=== PATIENT | male | born 1980 | race Caucasian/White ===

== ENCOUNTER 2018-08-28 13:55 | Inpatient (IN) | payer OTHER ==
[~2018-08-28] VITALS: Ht 190.5 cm; Wt 114.4 kg
--- NOTE | 2018-08-28 14:16 | NUR ---
MS OPENING NOTES PATIENT ARRIVED VIA AMBULANCE AT 1415. PATIENT IS A/O X 4. PATIENT HAS NO SIGNS OF RESPIRATORY DISTRESS. PATIENT DENIES SHORTNESS OF BREATH AT THIS TIME. PATIENT HAS IV RIGHT ANTECUBITAL G20. PATIENT HAS PAIN 8/10 AT THIS TIME. SAFETY PRECAUTIONS IMPLEMENTED: BED IN LOW POSITION, BED LOCKED, SIDERAILS UP X2, CALL LIGHT WITHIN REACH. WILL CONTINUE TO MONITOR THROUGHOUT THE REST OF SHIFT.
[2018-08-28] MEDS ORDERED: NAPR-1009 PO (14:28)
[2018-08-28] MEDS ORDERED: QUET400T PO (14:28)
[2018-08-28] MEDS ORDERED: ALPR0.5T PO (14:28)
[2018-08-28] MEDS ORDERED: DOCU-141 PO (14:28)
[2018-08-28] MEDS ORDERED: SENN-168 PO (14:28)
[2018-08-28] MEDS ORDERED: CITA40TA11 PO (14:28)
--- NOTE | 2018-08-28 14:30 | NUR ---
MS/RN NOTE DURING ASSESSMENT THE PATIENT VERBALIZED THAT HE HAS HX SCHIZOPHRENIA. HE STATED HAVING AUDITORY HALLUCINATION THAT TELL HIM HARM HIM OR OTHERS BUT THE PATIENT DENIES HAVING FOLLOWING THE VOICES, DENIES ATTEMPTS OF SI/HI AND DENIES HAVING THOUGHT OF SI/HI. THE PATIENT STATES I DO NOT LISTEN TO THE VOICES. THE PATIENT DENIES HAVING VISUAL HALLUCINATION. WILL FOLLOW UP WITH EVELIA ALCANTARA.
--- NOTE | 2018-08-28 15:08 | NUR ---
MS HILARIA PATIENT REFUSED SKIN ASSESSMENT DUE TO PAIN 01/30 TO LEFT INGUINAL AREA RADIATING TO LEFT LEG. Addendum: 08/28/18 at 1509 by SHERRY BAE RN WILL DO SKIN ASSESSMENT AFTER PAIN IS TOLERABLE.
[2018-08-28 16:00] VITALS: BP 123/75
[2018-08-28] MEDS ORDERED: ACETAMINOPHEN 325 MG TABLET PO PRN (16:00)
[2018-08-28] MEDS ORDERED: ONDANSETRON HCL/PF 4 MG/2 ML VIAL IVP PRN (16:00)
[2018-08-28] MEDS ORDERED: MAGNESIUM HYDROXIDE 30 ML UDC PO PRN (16:00)
[2018-08-28] MEDS ORDERED: Z GUARD REMEDY 2 OZ OINT TP PRN (16:00)
[2018-08-28] MEDS ORDERED: MAG HYDROX/AL HYDROX/SIMETH 30 ML UDC PO PRN (16:00)
[2018-08-28 17:00] VITALS: BP 132/78
[2018-08-28 17:19] LABS: BASOPHILS # (AUTO) 0.1 /CMM (0.0-0.2); BASOPHILS % (AUTO) 0.5 % (0.0-2.0); EOSINOPHILS % (AUTO) 2.2 % (0.0-6.0); HEMATOCRIT 38 % (39-51); HEMOGLOBIN 13.1 g/dL (13.5-17.5); LYMPHOCYTES # (AUTO) 1.9 /CMM (0.8-4.8); LYMPHOCYTES % (AUTO) 18.8 % (20.0-44.0); MEAN CORPUSCULAR HGB CONC 34 g/dl (31.0-36.0); MEAN CORPUSCULAR VOLUME 89 fL (80-96); MONOCYTES # (AUTO) 0.8 /CMM (0.1-1.30); MONOCYTES % (AUTO) 8.1 % (2.0-12.0); NEUTROPHILS % (AUTO) 70.4 % (43.0-81.0); PLATELET COUNT (AUTO) 228 /CMM (150-450); RED BLOOD CELL COUNT(AUTO) 4.29 MIL/uL (4.5-6.0)
[2018-08-28] MEDS ORDERED: FEE PK DOSING 1 MIN EA MC ONE (17:19)
--- NOTE | 2018-08-28 17:29 | NUR ---
MS/RN NOTE COMPONENT TECHNICIAN MARICRUZ IS MADE AWARE OF PATIENT DX OF SCHIZOPHRENIA AND HAVING AUDITORY HALLUCINATION. RECEIVED ORDER FOR PSYCH CONSULT. THE ORDER IS READ BACK, VERIFIED. NOTED AND CARRIED OUT. ENDORSED ACCORDINGLY.
[2018-08-28] MEDS: IV NS 0.9% 1,000 ML IV PRN (17:34)
[2018-08-28 17:37] LABS: CALCIUM, SERUM 8.4 mg/dL (8.5-10.1); POTASSIUM 3.7 mmol/L (3.5-5.1)
[2018-08-28] MEDS: MORPHINE SULFATE INJ 2 MG/ML DISP.SYRIN IV PRN (17:40)
[2018-08-28] MEDS ORDERED: PIPERACILLIN /TAZOBACTAM 3.375 G in IV D5W 50 ML IV SCH (18:00)
--- NOTE | 2018-08-28 18:10 | NUR ---
MS/RN NOTE LEFT LEG PAIN 510. STATED THAT THE PATIENT MEDICATION WAS EFFECTIVE AND DOES NOT WANT ANOTHER PAIN MEDICATION AT THIS TIME. STILL REFUSED SKIN ASSESSMENT.
--- NOTE | 2018-08-28 18:18 | NUR ---
MS/RN NOTE THE PATIENT ALERT AND ORIENTED X4. IN ROOM AIR AND SATURATION IS AT 97%. DENIES SOB. RESPIRATION REGULAR AND UNLABORED. DENIES PAIN AT THIS TIME. THE PATIENT IN NO APPARENT DISTRESS. DENIES SI, DENIES HI. RAC G 20 PATENT AND NORMAL SALINE INFUSING AT 75ML/HR. NO S/S INFILTRATION NOTED. BED LOW AND LOCKED. SIDE RAILS UP X2. CALL LIGHT WITHIN REACH. WILL ENDORSE TO WAFER MACHINE OPERATOR.
[2018-08-28] MEDS: VANCOMYCIN 1.25 GM in IV D5W 500 ML IV SCH (18:38)
--- NOTE | 2018-08-28 19:30 | NUR ---
MS/RN NOTES RECEIVED PT. LYING IN BED. PT. IS AWAKE, ALERT AND ORIENTED X4. BREATHING EVEN AND UNLABORED ON ROOM AIR. NO SOB OR RESPIRATORY DISTRESS NOTED AT THIS TIME. PT. COMPLAINING OF PAIN 7/10 IN HIS LEFT INGUINAL AREA. PT. STATES THE PAIN MEDICATION IS EFFECTIVE AND HIS PAIN LEVEL HAS IMPROVED SINCE RECEIVING THE MEDICATION. WILL CONTINUE TO MONITOR PT. PAIN AND ADMINISTER PAIN MEDICATION ORDERED. PT. WITH RIGHT FOREARM 20 GAUGE PERIPHERAL IV PRESENT, PATENT AND INTACT ADMINISTERING TO PT. NS @ 75 ML/HR. PT. CONTINUE TO REFUSE SKIN ASSESSMENT DUE TO PAIN. WILL ATTEMPT AGAIN AT A LATER TIME. PER DAYSHIFT NURSE PSYCH CONSULT IS PENDING. PT. DENIES ANY SUICIDAL IDEATIONS OR HOMICIDAL IDEATIONS AT THIS TIME. BED LOCKED AND IN LOWEST POSITION, SIDE RAILS UP X2, CALL LIGHT WITHIN REACH, WILL CONTINUE TO MONITOR.
[2018-08-28 20:00] VITALS: BP 130/77
[2018-08-28] MEDS: PIPERACILLIN /TAZOBACTAM 3.375 G in IV D5W 100 ML IV SCH (20:37)
--- NOTE | 2018-08-28 21:36 | NUR ---
TEXTED DR. VALLE FOR MRI APPROVAL.
[2018-08-29] MEDS: MORPHINE SULFATE INJ 2 MG/ML DISP.SYRIN IV PRN (01:10)
[2018-08-29] MEDS: VANCOMYCIN 1.25 GM in IV D5W 500 ML IV SCH ×3 (02:54→18:07)
[2018-08-29] MEDS: PIPERACILLIN /TAZOBACTAM 3.375 G in IV D5W 100 ML IV SCH ×3 (05:15→19:55)
[2018-08-29 06:35] LABS: BASOPHILS # (AUTO) 0.1 /CMM (0.0-0.2); BASOPHILS % (AUTO) 0.9 % (0.0-2.0); HEMATOCRIT 41 % (39-51); HEMOGLOBIN 13.8 g/dL (13.5-17.5); LYMPHOCYTES # (AUTO) 1.3 /CMM (0.8-4.8); LYMPHOCYTES % (AUTO) 16.3 % (20.0-44.0); MEAN CORPUSCULAR HGB CONC 34 g/dl (31.0-36.0); MEAN CORPUSCULAR VOLUME 89 fL (80-96); MONOCYTES # (AUTO) 0.6 /CMM (0.1-1.30); MONOCYTES % (AUTO) 7.6 % (2.0-12.0); NEUTROPHILS # (AUTO) 5.9 /CMM (1.8-8.9); NEUTROPHILS % (AUTO) 73.2 % (43.0-81.0); PLATELET COUNT (AUTO) 230 /CMM (150-450); RED BLOOD CELL COUNT(AUTO) 4.54 MIL/uL (4.5-6.0); WHITE BLOOD COUNT (AUTO) 8.1 K/uL (4.3-11.0)
--- NOTE | 2018-08-29 06:40 | NUR ---
MS/RN NOTES PT. IS LYING IN BED. AWAKE, ALERT AND ORIENTED X3. BREATHING EVEN AND UNLABORED ON ROOM AIR. NO SOB, RESPIRATORY DISTRESS OR COMPLAINTS OF PAIN NOTED AT THIS TIME. PT. WITH RIGHT FOREARM 20 GAUGE PERIPHERAL IV PRESENT, PATENT AND INTACT ADMINISTERING TO PT. NS @ 75 ML/HR. ALL PT. NEEDS MET. BED LOCKED AND IN LOWEST POSITION, SIDE RAILS UP X2, CALL LIGHT WITHIN REACH, WILL ENDORSE TO DAYSHIFT NURSE FOR CONTINUITY OF CARE.
[2018-08-29 06:44] LABS: MAGNESIUM 2.1 mg/dL (1.8-2.4); PHOSPHORUS 3.9 mg/dL (2.5-4.9); POTASSIUM 3.5 mmol/L (3.5-5.1)
[2018-08-29 06:55] LABS: THYROID STIMULATING HORMONE 4.419 uIU/mL (0.358-3.74)
--- NOTE | 2018-08-29 07:10 | NUR ---
RN NOTES PATIENT A/OX4, BREATHING EVEN AND UNLABORED, NO SOB NOTED, PATIENT STATED LONG HE'S LYING STILL, THERE'S NO PAIN, BUT WHEN HE MOVES, HE'S IN PAIN. IVF INFUSING AND TOLERATING WELL, KEPT COMFORTABLE, WILL FOLLOW UP WITH RE: MED RECON. NEEDS ATTENDED AND MET, CALL LIGHT WITHIN REACH, WILL CONTINUE TO MONITOR.
[2018-08-29 08:00] VITALS: BP 123/79
--- NOTE | 2018-08-29 08:30 | NUR ---
RN NOTES RECHECKED TEMP AND SHOWS 99.0. ENCOURAGED PATIENT TO COVER WITH THIN BLANKET FOR NOW.
--- NOTE | 2018-08-29 10:00 | NUR ---
RN NOTES PATIENT SEEN BY WOJCIECH ALCANTARA NP, INFORMED OF MED RECON, PER MILITARY COOK, WILL HOLD OFF ON MED-RECON FOR NOW. STILL WAITING FOR PSYCH CONSULT AND RECOMMENDATION. Addendum: 08/29/18 at 1823 by PETE BROWN RN ADDENDUM: RECEIVED A CALL FROM [facility], RE[facility] GRAM POSITIVE COCCI AND CLUSTERS. WOJCIECH ALCANTARA NP MADE AWARE.
[2018-08-29] MEDS ORDERED: HYDROMORPHONE INJ 0.5 MG/0.5 ML SYRINGE IV PRN (10:30)
--- NOTE | 2018-08-29 11:45 | NUR ---
RN NOTES PATIENT WENT DOWNSTAIRS FOR AN MRI.
[2018-08-29] MEDS: HYDROMORPHONE 1 MG/1 ML DISP.SYRIN IV PRN ×3 (13:33→19:37)
[2018-08-29] MEDS ORDERED: GADODIAMIDE 5 MMOL/10 ML VIAL IJ ONE (14:53)
[2018-08-29 16:00] VITALS: BP 117/80
--- NOTE | 2018-08-29 16:00 | NUR ---
RN NOTES INFORMED WOJCIECH ALCANTARA NP RE: THE MRI RESULT. NO NEW ORDER AT THIS TIME.
[2018-08-29] MEDS: LACTOBACILLUS RHAMNOSUS GG 1 EACH CAP.SPRINK PO SCH (17:17)
--- NOTE | 2018-08-29 18:17 | NUR ---
RN NOTES PATIENT A/OX4, STILL SITTING AT EDGE OF THE BED, NO DISTRESS NOTED, DENIES PAIN AT THIS TIME, IVF INFUSING AND VANCOMYCIN INFUSING AND TOLERATING WELL. PATIENT SEEN BY GISELLE CHRISTINE. NEEDS ATTENDED AND MET, CALL LIGHT WITHIN REACH, WILL ENDORSE TO AUTOMATIC SPOOLER OPERATOR FOR KAREEM.
--- NOTE | 2018-08-29 19:35 | NUR ---
MS RN NOTE RECEIVED PT IN STABLE CONDITION A&O X3-4, ABLE TO MAKE NEEDS KNOWN. NOT SIGNS OF SOB OR DISTRESS, BREATHING EVEN AND UNLABORED. IV ATB INFUSING TOLERATING WELL. ALL CURRENT NEEDS MET. SAFETY PRECAUTIONS IN PLACE: BED LOW, LOCKED, UPPER RAILS UP, AND CALL LIGHT WITHIN REACH. WILL CONT. TO MONITOR.
[2018-08-29 20:00] VITALS: BP 109/66
[2018-08-29] MEDS: ARIPIPRAZOLE 5 MG TABLET PO SCH (21:04)
[2018-08-30] MEDS: VANCOMYCIN 1.25 GM in IV D5W 500 ML IV SCH ×3 (01:25→17:05)
[2018-08-30] MEDS: PIPERACILLIN /TAZOBACTAM 3.375 G in IV D5W 100 ML IV SCH ×3 (03:52→19:53)
--- NOTE | 2018-08-30 06:17 | NUR ---
MS RN NOTE PT IN STABLE CONDITION A&O X3-4, ABLE TO MAKE NEEDS KNOWN. NO SIGNS OF SOB OR DISTRESS, BREATHING EVEN AND UNLABORED. IV ATB INFUSING TOLERATING WELL. ALL CURRENT NEEDS MET. SAFETY PRECAUTIONS IN PLACE: BED LOW, LOCKED, UPPER RAILS UP, AND CALL LIGHT WITHIN REACH. WILL CONT. TO MONITOR AND ENDORSE TO NEXT SHIFT FOR KAREEM.
--- NOTE | 2018-08-30 07:00 | NUR ---
RN OPENING NOTES PT AWAKE AND RESTING IN BED. NO COMPLAINTS OF PAIN SOB OR DISTRESS AT THIS TIME. PT HAS A LEFT FA #20 AND RIGHT FA #20 BOTH INTACT AND PATENT. SAFETY PRECAUTIONS IN PLACE, BED IN LOWEST LOCKED POSITION, X2 SIDE RAILS UP AND CALL LIGHT WITHIN REACH. WILL CONTINUE TO MONITOR.
[2018-08-30 07:14] LABS: BASOPHILS % (AUTO) 0.5 % (0.0-2.0); EOSINOPHILS % (AUTO) 3.9 % (0.0-6.0); HEMATOCRIT 37 % (39-51); HEMOGLOBIN 12.8 g/dL (13.5-17.5); LYMPHOCYTES # (AUTO) 1.7 /CMM (0.8-4.8); LYMPHOCYTES % (AUTO) 21.9 % (20.0-44.0); MEAN CORPUSCULAR HGB CONC 34 g/dl (31.0-36.0); MEAN CORPUSCULAR VOLUME 89 fL (80-96); MONOCYTES # (AUTO) 0.7 /CMM (0.1-1.30); MONOCYTES % (AUTO) 8.4 % (2.0-12.0); NEUTROPHILS # (AUTO) 5.2 /CMM (1.8-8.9); NEUTROPHILS % (AUTO) 65.3 % (43.0-81.0); PLATELET COUNT (AUTO) 237 /CMM (150-450); RED BLOOD CELL COUNT(AUTO) 4.21 MIL/uL (4.5-6.0); WHITE BLOOD COUNT (AUTO) 7.9 K/uL (4.3-11.0)
[2018-08-30 07:29] LABS: CALCIUM, SERUM 8.5 mg/dL (8.5-10.1); CREATININE 0.8 mg/dL (0.6-1.3); POTASSIUM 3.5 mmol/L (3.5-5.1)
[2018-08-30] MEDS: HYDROMORPHONE 1 MG/1 ML DISP.SYRIN IV PRN ×5 (07:29→23:00)
[2018-08-30 08:00] VITALS: BP 123/69
[2018-08-30] MEDS: LACTOBACILLUS RHAMNOSUS GG 1 EACH CAP.SPRINK PO SCH ×2 (08:49→16:32)
--- NOTE | 2018-08-30 14:49 | NUR ---
RN NOTES PT REQUESTED TO SHOWER. PER WOJCIECH ALCANTARA OKTAB FOR PATIENT TO SHOWER. WILL CARRY OUT ORDERED.
[2018-08-30 16:00] VITALS: BP 134/79
--- NOTE | 2018-08-30 18:56 | NUR ---
RN CLOSING NOTES PT AWAKE AND RESTING IN BED. NO COMPLAINTS OF PAIN SOB OR DISTRESS, PT PAIN MANAGED THROUGH DILAUDID Q2H PRN. PT HAS A LEFT FA #20 AND RIGHT FA #20 BOTH INTACT AND PATENT. SAFETY PRECAUTIONS IN PLACE, BED IN LOWEST LOCKED POSITION, X2 SIDE RAILS UP AND CALL LIGHT WITHIN REACH. WILL ENDORSE TO OB GYN FOR CONTINUITY OF CARE.
--- NOTE | 2018-08-30 19:05 | NUR ---
MS RN NOTE RECEIVED PT IN STABLE CONDITION, A&O X4, ABLE TO MAKE NEEDS KNOWN. PT AWAKE/ALERT WITH FRIENDS CURRENTLY AT BEDSIDE. NO SIGNS OF SOB OR DISTRESS, BREATHING EVEN AND UNLABORED. ALL CURRENT NEEDS MET. SAFETY PRECAUTIONS IN PLACE: BED LOW, LOCKED, UPPER RAILS UP, AND CALL LIGHT WITHIN REACH. WILL CONT. TO MONITOR.
--- NOTE | 2018-08-30 19:36 | NUR ---
MS RN NOTE PRN DILAUDID 0.5 MG GIVEN FOR PAIN 9/10 LOCATED IN L INGUINAL AREA. WILL CONT TO MONITOR.
[2018-08-30 20:00] VITALS: BP 139/90
[2018-08-30] MEDS: ARIPIPRAZOLE 5 MG TABLET PO SCH (21:00)
--- NOTE | 2018-08-30 23:00 | NUR ---
MS RN NOTE PRN DILAUDID 0.5 MG IV GIVEN FOR PAIN IN THE L INGUINAL AREA. PT. ALSO REFUSED WEEKLY BODY CHECK. WILL CONT TO MONITOR.
[2018-08-31] MEDS: VANCOMYCIN 1.25 GM in IV D5W 500 ML IV SCH ×3 (01:00→18:22)
[2018-08-31] MEDS: PIPERACILLIN /TAZOBACTAM 3.375 G in IV D5W 100 ML IV SCH ×3 (03:46→20:37)
[2018-08-31] MEDS: HYDROMORPHONE 1 MG/1 ML DISP.SYRIN IV PRN ×3 (03:57→17:13)
--- NOTE | 2018-08-31 06:26 | NUR ---
MS RN NOTE PT IN STABLE CONDITION, A&O X4, ABLE TO MAKE NEEDS KNOWN. NO SIGNS OF SOB OR DISTRESS, BREATHING EVEN AND UNLABORED. PAIN MANAGED AT ORDERED BY MD. ALL CURRENT NEEDS MET. SAFETY PRECAUTIONS IN PLACE: BED LOW, LOCKED, UPPER RAILS UP, AND CALL LIGHT WITHIN REACH. WILL CONT. TO MONITOR AND ENDORSE TO NEXT SHIFT FOR KAREEM.
[2018-08-31 06:28] LABS: BASOPHILS # (AUTO) 0.1 /CMM (0.0-0.2); HEMATOCRIT 37 % (39-51); HEMOGLOBIN 12.6 g/dL (13.5-17.5); LYMPHOCYTES # (AUTO) 2.1 /CMM (0.8-4.8); LYMPHOCYTES % (AUTO) 26.3 % (20.0-44.0); MEAN CORPUSCULAR HGB CONC 34 g/dl (31.0-36.0); MEAN CORPUSCULAR VOLUME 89 fL (80-96); MONOCYTES # (AUTO) 0.6 /CMM (0.1-1.30); MONOCYTES % (AUTO) 7.3 % (2.0-12.0); NEUTROPHILS # (AUTO) 4.8 /CMM (1.8-8.9); NEUTROPHILS % (AUTO) 60.4 % (43.0-81.0); PLATELET COUNT (AUTO) 240 /CMM (150-450); RED BLOOD CELL COUNT(AUTO) 4.16 MIL/uL (4.5-6.0); WHITE BLOOD COUNT (AUTO) 7.9 K/uL (4.3-11.0)
[2018-08-31 06:36] LABS: CALCIUM, SERUM 8.5 mg/dL (8.5-10.1); CREATININE 0.8 mg/dL (0.6-1.3); POTASSIUM 3.7 mmol/L (3.5-5.1)
--- NOTE | 2018-08-31 07:30 | NUR ---
MS RN OPENING NOTE RECEIVED PT IN BED, RESTING WITH EYES CLOSED. BREATHING IS EVEN AND UNLABORED ON ROOM AIR. NO ACUTE DISTRESS NOTED AT THIS TIME. RIGHT FA #20G IV IS INFUSING ORDERED WITHOUT REDNESS OR SWELLING. ALL NEEDS ATTENDED TO. BED IS LOCKED AND IN LOWEST POSITION, SIDE RAILS UP X2, BED ALARM ON, CALL LIGHT AND POSSESSIONS WITHIN REACH.
[2018-08-31 08:00] VITALS: BP 126/81
[2018-08-31] MEDS: LACTOBACILLUS RHAMNOSUS GG 1 EACH CAP.SPRINK PO SCH ×2 (08:55→17:12)
--- NOTE | 2018-08-31 10:00 | NUR ---
MS RN NOTE PER RICHARD IN PHARMACY, PT DOES NOT NEED VANCOMYCIN TROUGH PRIOR TO 1000 VANCOMYCIN ADMINISTRATION BUT WILL REQUIRE ONE PRIOR TO THE 1800 DOSE.
[2018-08-31] MEDS: HYDROCODONE/APAP 5/325MG 1 EACH TABLET PO PRN ×3 (11:24→21:58)
--- NOTE | 2018-08-31 12:25 | NUR ---
MS RN NOTE SIGNED RELEASE OF RECORDS SENT TO [facility] MEDICAL RECORDS DEPARTMENT WITH [facility] FAX AND PHONE NUMBER. AWAITING RECEIPT OF MEDICAL RECORDS, INCLUDING BLOOD CX.
--- NOTE | 2018-08-31 13:30 | NUR ---
MS RN NOTE PER CHARGE NURSE ELIAN, HOSPITAL RECORDS FROM [facility] RECEIVED AND PLACED IN CHART. INFORMED HOSPITALIST WOJCIECH LACANTARA NP.
--- NOTE | 2018-08-31 14:21 | NUR ---
Social service consult received from Devaughn Trinidad for Drug (meth) use and Auditory Hallucination. Pt is a 38-year-old male transferred to [facility] from [facility] due to complaints of left groin pain. Pt has a history of drug use and diagnosis of Schizophrenia and depression. Social work met with pt at bedside, pt appeared clean and well groomed. Pt is alert and oriented x4 and in a pleasant mood. 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 Pt reports to social work his history with schizophrenia pt report he used to receive care at [facility] however has not been to the facility for over a year. Pt reports to have visited [facility] however has not received any care yet. Sw offered pt substance abuse referrals and mental health resources, pt accepted. Pt reports he is currently residing with his friends mother in her home. Pts friend was at bedside for support. Pt reports he has two children (ages five and eight). Pt reports his emergency contact is his sister Sarina Pereyra ([phone]). Pt denies any current Auditory or Visual Hallucination at this time. Pt denies any SI/HI. Sw left substance abuse and mental health resources with pt. No further social media director needs identified at this time. Sw remains available if needed.
[2018-08-31 16:00] VITALS: BP 129/81
[2018-08-31] MEDS: IV NS 0.9% 1,000 ML IV PRN (18:22)
--- NOTE | 2018-08-31 18:37 | NUR ---
MS RN CLOSING NOTE PT IN BED SITTING UP TALKING WITH FRIEND AT THE BEDSIDE. PT IS A/O X4, DENIES CHEST PAIN, SOB, N/V. BREATHING IS EVEN AND UNLABORED ON ROOM AIR. PT MEDICATED WITH NORCO 5-325MG @ 1830 FOR PAIN OF THE LEFT HIP ORDERED. NO ACUTE DISTRESS NOTED AT THIS TIME. RIGHT FA #20G IV IS INFUSING ORDERED WITHOUT REDNESS OR SWELLING. ASSISTED PT WITH SHOWER AND ADLS TODAY. PT WENT OUT FOR SMOKE BREAK X 1 DURING THE SHIFT. PT FOR US GUIDED CYST ASPIRATION AND CT GUIDED PARACENTESIS TOMORROW MORNING WITH ORDERS FOR NPO AT MIDNIGHT. CONSENTS SIGNED AND PLACED IN CHART. ALL NEEDS ATTENDED TO. BED IS LOCKED AND IN LOWEST POSITION, SIDE RAILS UP X2, BED ALARM ON, CALL LIGHT AND POSSESSIONS WITHIN REACH. WILL ENDORSE TO PHARMACEUTICAL COMPOUNDING SUPERVISOR NURSE FOR CONTINUITY OF CARE.
--- NOTE | 2018-08-31 19:53 | NUR ---
RN NOTES RECEIVED PATIENT IN STABLE CONDITION, ALERT & ORIENTED X4, ABLE TO MAKE NEEDS KNOWN. NO SIGNS OF SOB OR DISTRESS, BREATHING EVEN AND UNLABORED. SAFETY MEASURES IN PLACED, BED IN LOW LOCK POSITION, PERIPHERAL IV LINE INTACT AND PATENT, WILL MONITOR ACCORDINGLY.
[2018-08-31 20:00] VITALS: BP 122/88
[2018-08-31] MEDS: ARIPIPRAZOLE 5 MG TABLET PO SCH (21:57)
[2018-09-01] MEDS: HYDROMORPHONE 1 MG/1 ML DISP.SYRIN IV PRN ×4 (00:06→21:50)
[2018-09-01] MEDS: VANCOMYCIN 1.25 GM in IV D5W 500 ML IV SCH (02:52)
[2018-09-01] MEDS: PIPERACILLIN /TAZOBACTAM 3.375 G in IV D5W 100 ML IV SCH ×2 (04:10→12:26)
--- NOTE | 2018-09-01 07:03 | NUR ---
RN NOTES ALL NEEDS ATTENDED AND MET. NPO SINCE MIDNIGHT, FOR US GUIDE CYST ASPIRATION AND CT GUIDED PARACENTESIS. WILL ENDORSE TO AM NURSE FOR CONTINUITY OF CARE.
[2018-09-01 07:22] LABS: BASOPHILS # (AUTO) 0.1 /CMM (0.0-0.2); BASOPHILS % (AUTO) 0.9 % (0.0-2.0); EOSINOPHILS % (AUTO) 4.9 % (0.0-6.0); HEMATOCRIT 40 % (39-51); HEMOGLOBIN 13.4 g/dL (13.5-17.5); LYMPHOCYTES # (AUTO) 2.2 /CMM (0.8-4.8); LYMPHOCYTES % (AUTO) 29.2 % (20.0-44.0); MEAN CORPUSCULAR HGB CONC 34 g/dl (31.0-36.0); MEAN CORPUSCULAR VOLUME 90 fL (80-96); MONOCYTES # (AUTO) 0.5 /CMM (0.1-1.30); MONOCYTES % (AUTO) 6.6 % (2.0-12.0); NEUTROPHILS # (AUTO) 4.4 /CMM (1.8-8.9); NEUTROPHILS % (AUTO) 58.4 % (43.0-81.0); PLATELET COUNT (AUTO) 264 /CMM (150-450); RED BLOOD CELL COUNT(AUTO) 4.48 MIL/uL (4.5-6.0); WHITE BLOOD COUNT (AUTO) 7.6 K/uL (4.3-11.0)
--- NOTE | 2018-09-01 07:30 | NUR ---
RN MS NOTES Patient received with no sob or ventilatory distress noted. patient remains on room air. vital signs stable, patient not in pain, call light within reach, and safety measures in place.
[2018-09-01 08:02] LABS: CALCIUM, SERUM 8.8 mg/dL (8.5-10.1); CREATININE 0.8 mg/dL (0.6-1.3); POTASSIUM 3.9 mmol/L (3.5-5.1)
[2018-09-01] MEDS: LACTOBACILLUS RHAMNOSUS GG 1 EACH CAP.SPRINK PO SCH ×2 (09:00→17:00)
[2018-09-01 09:16] VITALS: BP 139/88
--- NOTE | 2018-09-01 10:58 | NUR ---
JUANCHO LUNSFORD) PAGED FOR CONSULT, AWAITING CALL BACK.
[2018-09-01] MEDS: HYDROCODONE/APAP 5/325MG 1 EACH TABLET PO PRN ×2 (11:14→16:06)
[2018-09-01] MEDS ORDERED: FENTANYL PF 250MCG/5ML AMPUL IV ONE (12:00)
[2018-09-01] MEDS ORDERED: NALOXONE PREFILLED SYRINGE 2 MG/2 ML SYRINGE IV ONE (12:00)
[2018-09-01] MEDS ORDERED: MIDAZOLAM HCL 5MG/ML VIAL 25 MG/5 ML VIAL IV ONE (12:00)
--- NOTE | 2018-09-01 15:45 | NUR ---
RN MS NOTES CALLED OFFICE OF [facility], MESSAGE LEFT WITH OFFICE C/O QUE FOR PT'S ORTHO CONSULT.
[2018-09-01] MEDS: VANCOMYCIN 1.5 GM in IV D5W 500 ML IV SCH ×2 (15:48→19:02)
[2018-09-01 16:00] VITALS: BP 128/76
--- NOTE | 2018-09-01 17:08 | NUR ---
RN MS NOTES PT SEEN BY MS SERVANDO PACKER FOR [facility]THO, PLAN OF CARE DISCUSSED WITH PT.
[2018-09-01] MEDS: CEFTRIAXONE 1 G in IV D5W 50 ML IV SCH (18:15)
--- NOTE | 2018-09-01 18:22 | NUR ---
RN Closing Notes Patient remains on room air with no sob or ventilatory distress noted. Patient is now on regular diet. Right hand with gauge 20, 75 mL per hour NS infusing. Patient does not complain of pain. Vital signs stable, maximiliano light within reach, and safety measures in place.
[2018-09-01 20:20] VITALS: BP 131/76
[2018-09-01] MEDS: ARIPIPRAZOLE 5 MG TABLET PO SCH (21:49)
[2018-09-02 01:50] VITALS: BP 131/76
--- NOTE | 2018-09-02 02:08 | NUR ---
MS RN OPENING NOTES Received patient asleep at this time, on RA, no SOB/respiratory distress at this time. Kept bed low and locked, siderails up. Will continue to monitor patient accordingly.
[2018-09-02] MEDS: IV NS 0.9% 1,000 ML IV PRN ×2 (02:57→17:35)
[2018-09-02] MEDS: VANCOMYCIN 1.5 GM in IV D5W 500 ML IV SCH ×3 (03:04→20:04)
[2018-09-02] MEDS: HYDROCODONE/APAP 5/325MG 1 EACH TABLET PO PRN ×2 (03:42→12:30)
[2018-09-02 06:39] LABS: BASOPHILS # (AUTO) 0.1 /CMM (0.0-0.2); BASOPHILS % (AUTO) 0.9 % (0.0-2.0); EOSINOPHILS % (AUTO) 6.5 % (0.0-6.0); HEMATOCRIT 40 % (39-51); HEMOGLOBIN 14.1 g/dL (13.5-17.5); LYMPHOCYTES # (AUTO) 1.5 /CMM (0.8-4.8); LYMPHOCYTES % (AUTO) 22.2 % (20.0-44.0); MEAN CORPUSCULAR HGB CONC 35 g/dl (31.0-36.0); MEAN CORPUSCULAR VOLUME 89 fL (80-96); MONOCYTES # (AUTO) 0.5 /CMM (0.1-1.30); MONOCYTES % (AUTO) 7.1 % (2.0-12.0); NEUTROPHILS # (AUTO) 4.3 /CMM (1.8-8.9); NEUTROPHILS % (AUTO) 63.3 % (43.0-81.0); PLATELET COUNT (AUTO) 302 /CMM (150-450); RED BLOOD CELL COUNT(AUTO) 4.57 MIL/uL (4.5-6.0); WHITE BLOOD COUNT (AUTO) 6.8 K/uL (4.3-11.0)
--- NOTE | 2018-09-02 06:40 | NUR ---
MS RN CLOSING NOTES Patient asleep on Patiño's position on bed, no discomfort noted at this time. All nursing needs attended and comfortable as much as possible. Kept bed low and locked with call light at bedside. No new complaints made. Endorsed to the next shift.
[2018-09-02 06:46] LABS: CALCIUM, SERUM 8.9 mg/dL (8.5-10.1); CREATININE 0.8 mg/dL (0.6-1.3); POTASSIUM 4.1 mmol/L (3.5-5.1)
--- NOTE | 2018-09-02 07:40 | NUR ---
MS/RN - Assessment Patient awake, A/O x 4, no complaints overnight, denies pain at this time, no apparent distress noted, afebrile, stable on room air. IVF NS at 75 ml/hr infusing well on the right hand with no signs of infiltration. Labs reviewed, no critical results. Continue Vancomycin and Rocephin for MSSA bacteremia and suspected osteomyelitis. Patient refused skin assessment. Patient is independent with bed mobility. Discussed plan of care. Will continue with current medical management.
[2018-09-02 08:00] VITALS: BP 120/76
[2018-09-02] MEDS: LACTOBACILLUS RHAMNOSUS GG 1 EACH CAP.SPRINK PO SCH ×2 (08:48→16:15)
[2018-09-02] MEDS: HYDROMORPHONE 1 MG/1 ML DISP.SYRIN IV PRN ×3 (09:04→20:56)
--- NOTE | 2018-09-02 15:50 | NUR ---
MS/RN - PICC line consent Patient signed the consent for PICC line insertion for IV antibiotic management.
[2018-09-02 16:00] VITALS: BP 125/90
--- NOTE | 2018-09-02 17:00 | NUR ---
MS/RN - PICC insertion PICC line was inserted on the right upper arm by PICC RN. Patient tolerated procedure well. Ok to use right upper arm PICC per RN.
[2018-09-02] MEDS: CEFTRIAXONE 1 G in IV D5W 50 ML IV SCH (17:25)
--- NOTE | 2018-09-02 18:20 | NUR ---
MS/RN - End of shift summary No new events seen. Patient resting comfortably, remain afebrile, IVF NS at 75ml/hr infusing well on the right hand with no signs of infiltration. PICC line on the right upper arm in place for IV antibiotic management x 6 weeks. Anticipate discharge to [facility] tomorrow. Will endorse to the night nurse accordingly.
--- NOTE | 2018-09-02 19:35 | NUR ---
MS RN RECEIVE PT IN BED. A/O X 3. RESPIRATIONS EVEN AND UNLABORED, NO SOB NOTED, NO DISTRESS, SAFETY MEASURES IN PLACE. WILL CONTINUE TO MONITOR.
[2018-09-02 20:00] VITALS: BP_SYST 126; BP_SYST 128; BP_DIAS 83
[2018-09-02] MEDS: ARIPIPRAZOLE 5 MG TABLET PO SCH (21:00)
[2018-09-03] MEDS: HYDROMORPHONE 1 MG/1 ML DISP.SYRIN IV PRN ×2 (00:07→08:50)
[2018-09-03] MEDS: VANCOMYCIN 1.5 GM in IV D5W 500 ML IV SCH ×2 (02:38→12:44)
[2018-09-03] MEDS: HYDROCODONE/APAP 5/325MG 1 EACH TABLET PO PRN ×2 (04:00→15:50)
--- NOTE | 2018-09-03 06:34 | NUR ---
RN CLOSING NOTE ASLEEP AND EASILY AWAKEN. RESPIRATIONS EVEN AND UNLABORED. NOT IN DISTRESS, STABLE. NEEDS ATTENDED AND ANTICIPATED, KEPT CLEAN AND DRY AND COMFORT. NURSING CARE RENDERED, SAFETY MEASURES IN PLACE, BED IN LOW LOCKED POSITION, CALL LIGHT WITHIN EASY REACH. ENDORSE TO NEXT SHIFT CONTINUITY OF CARE.
--- NOTE | 2018-09-03 07:50 | NUR ---
ms rn received on bed, awake,alert,oriented x4,not in any form of distress, respirations even and unlabored,no sob noted,lungs are clear,abdomen soft,positive bowel sounds, denies pain at this time,all needs attended.
[2018-09-03 08:00] VITALS: BP 119/74
[2018-09-03 08:01] LABS: BASOPHILS # (AUTO) 0.1 /CMM (0.0-0.2); BASOPHILS % (AUTO) 1.3 % (0.0-2.0); EOSINOPHILS % (AUTO) 4.9 % (0.0-6.0); HEMATOCRIT 42 % (39-51); HEMOGLOBIN 14.2 g/dL (13.5-17.5); LYMPHOCYTES % (AUTO) 25.7 % (20.0-44.0); MEAN CORPUSCULAR HGB CONC 34 g/dl (31.0-36.0); MEAN CORPUSCULAR VOLUME 90 fL (80-96); MONOCYTES # (AUTO) 0.6 /CMM (0.1-1.30); MONOCYTES % (AUTO) 7.4 % (2.0-12.0); NEUTROPHILS # (AUTO) 4.8 /CMM (1.8-8.9); NEUTROPHILS % (AUTO) 60.7 % (43.0-81.0); PLATELET COUNT (AUTO) 292 /CMM (150-450); RED BLOOD CELL COUNT(AUTO) 4.64 MIL/uL (4.5-6.0)
[2018-09-03 08:23] LABS: CALCIUM, SERUM 9.3 mg/dL (8.5-10.1); CREATININE 0.8 mg/dL (0.6-1.3); POTASSIUM 4.2 mmol/L (3.5-5.1)
[2018-09-03] MEDS: LACTOBACILLUS RHAMNOSUS GG 1 EACH CAP.SPRINK PO SCH (08:49)
--- NOTE | 2018-09-03 09:50 | NUR ---
ms yarbrough breakfast served, due meds given, tolerated well.
[2018-09-03] MEDS ORDERED: VANC1PLA9 IV (09:58)
[2018-09-03] MEDS ORDERED: ARIP5TAB10 PO (09:58)
[2018-09-03] MEDS ORDERED: CEFT1VIA15 IV (09:58)
--- NOTE | 2018-09-03 11:30 | NUR ---
ms rn was seen by md for discharge today.
--- NOTE | 2018-09-03 16:30 | NUR ---
ms rn patient transferred to snf w/ continued meds, report given to jeffery yarbrough. no distress noted.
== END 2018-09-03 16:30 | DRG 720 ==
LOC: MED 13:55
PROVIDERS: ADMIT Nurse Practitioner Acute Care; ATTEND Family Medicine
PROC: 02HV33Z Insertion of Infusion Device into Superior Vena Cava, Percutaneous Approach (ICD-10-PCS; principal; 2018-09-02)
PROC: B548ZZA Ultrasonography of Superior Vena Cava, Guidance (ICD-10-PCS; principal; 2018-09-02)
DX: A41.9 Sepsis, unspecified organism (principal); N17.0 Acute kidney failure with tubular necrosis; M00.9 Pyogenic arthritis, unspecified; E87.1 Hypo-osmolality and hyponatremia; E86.0 Dehydration; M86.9 Osteomyelitis, unspecified; M60.009 Infective myositis, unspecified site; E44.1 Mild protein-calorie malnutrition; F17.210 Nicotine dependence, cigarettes, uncomplicated; M86.8X8 Other osteomyelitis, other site; B95.61 Methicillin susceptible Staphylococcus aureus infection as the cause of diseases classified elsewhere; F20.0 Paranoid schizophrenia; K21.9 Gastro-esophageal reflux disease without esophagitis; Z80.1 Family history of malignant neoplasm of trachea, bronchus and lung; E86.1 Hypovolemia
CPT/HCPCS: 36415; 36569; 72197-TC; 75989; 75989-TC; 80048-TC; 80061-TC; 80202-TC; 83605-TC; 83735-TC; 84100-TC; 84443-TC; 85025-TC; 85610-TC; 87040-TC; 87081-TC; 87806; 93307-TC; A9579; C1751; G0378; J0696; J1170; J2250; J2270; J2310; J2543; J3010; J3370; J7030; J7060